=== PATIENT | female | born 1990 | race Caucasian/White ===

== ENCOUNTER 2016-12-09 18:50 | Emergency (ER) | payer OTHER ==
[~2016-12-09] VITALS: Ht 162.6 cm; Wt 61.2 kg
[2016-12-09 18:59] VITALS: BP 114/75
[2016-12-09] MEDS ORDERED: TRINESSA TABLE1 EACH PO (19:23)
--- NOTE | 2016-12-09 19:25 | ED NOSE COMPLAINT ---
History of Present Illness General Chief Complaint: Skin Rash/ Abcess Stated Complaint: ABSCESS Source: patient, family (mother) Exam Limitations: no limitations Vital Signs & Intake/Output Vital Signs & Intake/Output Vital Signs Date Time Temp Pulse Resp B/P Pulse O2 O2 Flow FiO2 Ox Delivery Rate 12/09 1859 98.3 71 16 114/75 96 Room Air Allergies Coded Allergies: No Known Allergies (12/09/16) Reconcile Medications Mupirocin Calcium (Bactroban Nasal) 2 % OINT...G. 1 GM NASB BID ABSCESS apply one-half in each nostril Norgestimate-Ethinyl Estradiol (Trinessa Tablet) [id number] 28 TABLET 1 TAB PO DAILY CONTROL (Reported) Triage Note: PT HAS SORE INSIDE HER LEFT NOSTRIL. PT STATES IT HAS BEEN THERE FOR 1 WEEK. Triage Nurses Notes Reviewed? yes Onset: Abrupt Duration: week(s): (1), constant Timing: recent history Injury Environment: home Severity: mild Severity Numbers: 5 No Modifying Factors: none Associated Symptoms: denies : No Patient currently breastfeeds: No HPI: 26-year-old female presents emergency room for evaluation complaining of a questionable abscess to her left nostril for the past 1 week. Patient denies history of similar symptoms in her nose prior R does have a history of herpes and states that it didn't look similar. The patient states that she is recently getting over an upper respiratory infection. No fever no chills no discharge from her nostril. She denies any abdominal pain chest pain shortness of breath sore throat ear pain she is not attempted any medication for the same. no recent injury or trauma Past History Travel History Traveled to [place] past 21 day No Medical History Any Pertinent Medical History? none Surgical History Surgical History: none Psychosocial History What is your primary language Polish Tobacco Use: Never used ETOH Use: occasional use Illicit Drug Use: denies illicit drug use Family History Hx Contributory? No Review of Systems Review of Systems Constitutional: Reports: see HPI. All Other Systems: Reviewed and Negative Comments Review of systems: See HPI, All other systems negative. Constitutional, no chills no fever, no malaise HEENT: No visual changes sore throat congestion, Cardiovascular: No chest pain , no palpitation Skin, no rashes, no change in skin Respiratory: No dyspnea no cough no sputum GI: No nausea no vomiting, no diarrhea, : No dysuria Muscle skeletal: No joint pain, no back pain, no neck pain, Neurologic: No numbness, no headache Psych: No stress Heme/endocrine: No bruising no bleeding Immunology: No lymphadenopathy Physical Exam Physical Exam General Appearance: well developed/nourished, no apparent distress, alert, awake Nose: small abscess left nostril Comments: Well-developed well-nourished patient in no apparent distress. Head/Face: Atraumatic, no maxillary/frontal sinus tenderness, no facial swelling Eyes: PERRL, EOMI, no conjunctival injection. No nystagmus Ear:External auditory canal and Tympanic membranes clear, no erythema, no FB. Nose: Small abscess noted to left nostril No bleeding, no septal hematoma Throat: Moist mucous membranes.Pharynx normal. No pharyngeal erythema/exudate seen. No stridor/drooling or assymetry. No swelling or edema. Neck: Supple, no lymphadenopathy, FROM Back: FROM, Nontender Cardiovascular: Regular rate and rhythms no murmurs rubs Respiratory: No respiratory distress. Patient speaking in full complete sentences. Breath sounds clear to auscultation bilaterally: NO W/R/R Extremities: full range of motion Neuro: Alert and oriented x3 Skin: Warm & dry;No appreciable rash on exposed skin Psych: Mood affect normal, normal memory normal judgment. Progress Differential Diagnoses I considered the following diagnoses in my evaluation of the patient: [abscess, herpes, cellulitis Plan of Care: Patient clinically appears well there requesting infectious disease doctor information for follow-up given patient's history of herpes. Prescription for Bactroban ointment was provided advised close follow-up return with any concerns they feel comfortable plan Initial ED EKG: none Departure Departure Time of Disposition: 1921 Disposition: HOME OR SELF CARE Condition: Stable Clinical Impression Primary Impression: Nasal abscess Referrals: WARREN POLLACK,MATTHIAS Durand Additional Instructions: BACTROBAN OINTMENT DIRECTED. FOLLOW UP WITH INFECTIOUS DISEASE DR KELLEY REGARDING THE OTHER RASH. RETURN WITH ANY CONCERNS. THIS PRESCRIPTION WAS SENT TO [facility] Departure Forms: Customer Survey General Discharge Information Prescriptions: Current Visit Scripts Mupirocin Calcium (Bactroban Nasal) 1 GM NASB BID #10 GM apply one-half in each nostril
[2016-12-09] MEDS ORDERED: BACTROBAN NASAL1 GM NASB (19:36)
== END 2016-12-09 19:50 ==
LOC: ERH 18:50
DX: J34.0 Abscess, furuncle and carbuncle of nose (principal)